=== PATIENT | male | born 1950 | race Caucasian/White ===

== ENCOUNTER 2020-03-20 12:51 | Emergency (ER) | payer MEDICARE, OTHER, SELFPAY ==
[2020-03-20 13:00] VITALS: BP 152/76; PULSE 119; RESP 16; TEMP 36.4; O2SAT 97; BMI 25.9
--- NOTE | 2020-03-20 13:33 | ED_ITS ---
HPI - Male Genitourinary <DORIAN Smith - Last Filed: 03/20/20 15:46> General Chief complaint: Urogenital-Male Stated complaint: bladder spasms Time Seen by Provider: 03/20/20 12:59 Source: patient Mode of arrival: Ambulatory Limitations: no limitations History of Present Illness HPI Narrative: The patient is a 69-year-old male nonsmoker with history of hip replacements an elevated PSA who presents for a chief complaint of inability to urinate. He states he started having trouble last night. He is scheduled to follow-up with a urologist early April given his elevated PSA, so he called their office and they referred him to the emergency department for a Taylor catheter. He states he is urinating very small amounts and that his bladder is hurting and feels like it is stretching. He denies any femurs, abnormal flank pain nausea vomiting or diarrhea. He states he is very concerned about his elevated PSA as he is concerned about prostate cancer. He states his urine is cloudy when he can make a few drops, but denies any dysuria. Related Data Allergies Allergy/AdvReac Type Severity Reaction Status Date / Time No Known Drug Allergies Allergy Verified 03/20/20 13:05 Review of Systems <DORIAN Smith - Last Filed: 03/20/20 15:46> Review of Systems Narrative: GENERAL: Denies chills, fatigue, malaise, fever, sweats. HEENT: Denies sinus pain, ear pain, sore throat, difficulty swallowing, dizziness. RESPIRATORY: Denies dyspnea, cough, wheezing, hemoptysis, sputum. CARDIOVASCULAR: Denies chest pain, palpitations, orthopnea, edema, GASTROINTESTINAL: Denies nausea, vomiting, abdominal pain, diarrhea, constipation, melena. : See HPI MUSCULOSKELETAL: denies weakness, joint pain, or bony pain SKIN: Denies rash, skin lesions, or other NEUROLOGIC: Denies weakness, headache, numbness, change in speech, confusion, seizures, incoordination. PSYCHIATRIC: No concerning psychosocial issues. 12 point review of systems is negative except for those stated above Patient History <DORIAN Smith - Last Filed: 03/20/20 15:46> Medical History (Updated 03/20/20 @ 14:24 by DORIAN Smith) Elevated PSA Surgical History (Updated 03/20/20 @ 13:34 by DORIAN Smith) H/O bilateral hip replacements Social History Smoking Status: Unknown if ever smoked Smoking Status: Unknown if ever smoked alcohol intake frequency: holidays/special occasions only Substance Use Type: does not use Exam <DORIAN Smith - Last Filed: 03/20/20 15:46> Narrative Exam Narrative: GENERAL: This is a well-nourished, well-developed patient, in mild distress. HEAD: Atraumatic. Normocephalic. No temporal or scalp tenderness. EYES: Pupils equal round and reactive. Extraocular motions intact. No scleral icterus. No injection or drainage. ENT: Nose without bleeding, purulent drainage or septal hematoma. Wearing a mask. Airway patent. NECK: Trachea midline. No JVD or lymphadenopathy. Supple, nontender, no meningeal signs. CARDIOVASCULAR: Regular rate and rhythm RESPIRATORY: Clear to auscultation. Breath sounds equal bilaterally. No wheezes, rales, or rhonchi. No cough. No increased respiratory effort. No accessory muscle use. GASTROINTESTINAL: Abdomen soft, diffuse suprapubic tenderness to palpation, nondistended. No hepato-splenomegaly, or palpable masses. Active bowel sounds all 4 quadrants EXTREMITIES: No clubbing, cyanosis, or edema. No joint tenderness, effusion, or edema noted. BACK: Nontender without deformity or crepitance. No flank tenderness. NEURO: AOx3. Stable gait. Interactive. SKIN: No rash or erythema on visible skin Initial Vital Signs Initial Vital Signs: Vital Signs Temperature 97.6 F 03/20/20 13:00 Pulse Rate 119 H 03/20/20 13:00 Respiratory Rate 16 03/20/20 13:00 Blood Pressure 152/76 H 03/20/20 13:00 Pulse Oximetry 97 03/20/20 13:00 <Alejandra Bhatt DO - Last Filed: 03/21/20 07:37> Initial Vital Signs Initial Vital Signs: Vital Signs Temperature 97.6 F 03/20/20 13:00 Pulse Rate 119 H 03/20/20 13:00 Respiratory Rate 16 03/20/20 13:00 Blood Pressure 152/76 H 03/20/20 13:00 Pulse Oximetry 97 03/20/20 13:00 Scores <TANMAY SmithP- - Last Filed: 03/20/20 15:46> GCS [place] coma scale eye opening: Spontaneous [place] coma scale verbal response: Orientated Roxanne coma scale motor response: Obey commands Roxanne coma scale total score: 15 Course <Shavonne CardonaTANMAYP- - Last Filed: 03/20/20 15:46> Orders Ordered: Discontinued Medications Lidocaine HCl (Lidocaine 2% (Urojet) 5 Ml Gel) 5 ml TOP NOW ONE Stop: 03/20/20 13:29 Vital Signs Vital signs: Vital Signs - 8 hr 03/20/20 13:00 03/20/20 14:33 Temperature 97.6 F Pulse Rate 119 H 90 Respiratory Rate 16 16 Blood Pressure 152/76 H 117/78 Pulse Oximetry 97 98 <Alejandra Bhatt DO - Last Filed: 03/21/20 07:37> Orders Ordered: Discontinued Medications Lidocaine HCl (Lidocaine 2% (Urojet) 5 Ml Gel) 5 ml TOP NOW ONE Stop: 03/20/20 13:29 Vital Signs Vital signs: Vital Signs - 8 hr 03/20/20 13:00 03/20/20 14:33 Temperature 97.6 F Pulse Rate 119 H 90 Respiratory Rate 16 16 Blood Pressure 152/76 H 117/78 Pulse Oximetry 97 98 MDM - Male Genitourinary <[facility] - Last Filed: 03/20/20 15:46> Lab Data Labs: Lab Results 03/20/20 Range/Units 13:45 Urine Color Yellow Urine Appearance Clear Urine pH 6.0 (4.5-8.0) Ur Specific [place] 1.020 (1.000-1.035) Urine Protein Negative (Negative) Urine Glucose (UA) Negative (Negative) g/dL Urine Ketones Negative (NEGATIVE) Urine Occult Blood 2+ H (Negative) Urine Nitrate Negative (Negative) Urine Bilirubin Negative (NEGATIVE) Urine Urobilinogen 0.2 (0.2) E.U./dL Ur Leukocyte Esterase Negative (NEGATIVE) Urine RBC 5-10/hpf H (0-5/HPF) Urine WBC None seen (0-5/HPF) Urine Bacteria None seen (None) Ur Culture Indicated? Cult not indicated Urine Dip Bedside Urine Glucose Negative Bedside Urine Bilirubin - Negative Bedside Urine Ketone - Negative Urine Specific [place] 1.025 Bedside Urine Occult Blood ++ Bedside Urine pH 6.0 Bedside Urine Protein - Negative Bedside Urine Urobilinogen - Negative Bedside Urine Nitrite - Negative Bedside Urine Leukocytes - Negative Esterase MDM Narrative Medical decision making narrative: The patient is a 69-year-old male presents with a chief complaint of bladder pain. He states he has had trouble urinating since last night. His bladder scan was over 700 cc, so Taylor catheter was inserted. He felt much improved and felt complete resolution of his symptoms. Urine has no signs of infection. Discussed at length the importance of follow- up with Urology as he has scheduled already. Discussed keeping catheter clean. Discussed come back to ER for acute concerns. Patient have no questions or concerns upon discharge and state understanding return precautions as well as f ollow-up care. <Alejandra Bhatt DO - Last Filed: 03/21/20 07:37> Lab Data Labs: Lab Results 03/20/20 Range/Units 13:45 Urine Color Yellow Urine Appearance Clear Urine pH 6.0 (4.5-8.0) Ur Specific [place] 1.020 (1.000-1.035) Urine Protein Negative (Negative) Urine Glucose (UA) Negative (Negative) g/dL Urine Ketones Negative (NEGATIVE) Urine Occult Blood 2+ H (Negative) Urine Nitrate Negative (Negative) Urine Bilirubin Negative (NEGATIVE) Urine Urobilinogen 0.2 (0.2) E.U./dL Ur Leukocyte Esterase Negative (NEGATIVE) Urine RBC 5-10/hpf H (0-5/HPF) Urine WBC None seen (0-5/HPF) Urine Bacteria None seen (None) Ur Culture Indicated? Cult not indicated Urine Dip Bedside Urine Glucose Negative Bedside Urine Bilirubin - Negative Bedside Urine Ketone - Negative Urine Specific [place] 1.025 Bedside Urine Occult Blood ++ Bedside Urine pH 6.0 Bedside Urine Protein - Negative Bedside Urine Urobilinogen - Negative Bedside Urine Nitrite - Negative Bedside Urine Leukocytes - Negative Esterase Discharge Plan Departure Patient Disposition: Home Clinical Impression: Acute retention of urine Instructions: How to Care for Your Taylor Catheter -- Male, DI for Urinary Retention in Men Activity Restrictions/Additional Instructions: Thank you for trusting us with your care today. We have placed a Taylor catheter to help your bladder drain. I have given you discharge instructions regarding how to take care of a Taylor catheter, please pay attention to these especially the aspects regarding keeping it clean. Please follow-up with your urologist as scheduled. I have given you contact information to the [facility] human resources assistant, who can help you identify primary care provider in the area. As discussed, please come back to the emergency department for any acute concerns. Referrals: [facility] [Outside] <Alejandra Bhatt, - Last Filed: 03/21/20 07:37> Mark ED Attending David Attestation: I was immediately available in the department for consultation. Documentation has been reviewed. I agree with assessment and plan.
[2020-03-20 13:47] LABS: Bacteria Urine None Seen; WBC Urine None Seen (0-5/HPF)
[2020-03-20 13:48] LABS: Appearance Urine UA CLEAR; Bilirubin Urine UA NEGATIVE (NEGATIVE); Color Urine UA YELLOW; Glucose Urine UA NEGATIVE (Negative); Ketones Urine UA NEGATIVE (NEGATIVE); Leukocyte Esterase Urine UA NEGATIVE (NEGATIVE); Nitrite Urine UA NEGATIVE (Negative); Occult Blood Urine UA 2+ (Negative); Protein Urine UA NEGATIVE (Negative); Urobilinogen Urine UA 0.2 E.U./dL (0.2)
[2020-03-20 13:53] LABS: Culture Indicated Urine Cult Not Indicated; RBC Urine 5-10/HPF (0-5/HPF)
[2020-03-20 14:33] VITALS: BP 117/78; PULSE 90; RESP 16; O2SAT 98
== END 2020-03-20 14:33 | disposition home or self-care (01) ==
PROVIDERS: Emergency Provider Nurse Practitioner Family
DX: R33.8 Other retention of urine (principal); R97.20 Elevated prostate specific antigen [PSA]
CPT/HCPCS: 51798; 81001; 81003; 99281; 99283

== ENCOUNTER → 2021-05-26 16:10 | Outpatient (CLI) | payer MEDICARE, OTHER, SELFPAY ==
--- NOTE | 2021-05-26 16:13 | DI.RAD.S_ITS ---
PROCEDURE: XR KNEE LT 3V INDICATIONS: swollen, painful knee TECHNIQUE: 3 views of the knee were acquired. COMPARISON: None. FINDINGS: Bones: No fractures or dislocations. No suspicious bony lesions. Soft tissues: No joint effusion. No suspicious soft tissue calcifications. IMPRESSION: No acute fracture. No osseous lesion. If symptoms and/or clinical suspicion for pathology persist, further assessment with repeat, or advanced imaging (e.g., CT, MRI, or bone scan) may be helpful for further assessment. Dictated by: Waqar Elaine M.D. on 05/26/2021 at 16:39 Approved by: Waqar Elaine M.D. on 05/26/2021 at 16:39
== END ==
PROVIDERS: Referring Provider Physician Assistant; Visit Provider Physician Assistant
DX: M25.562 Pain in left knee (principal)
CPT/HCPCS: 73562

== ENCOUNTER → 2021-09-04 12:39 | Outpatient (CLI) | payer MEDICARE, OTHER, SELFPAY ==
--- NOTE | 2021-09-04 | DI.CT.S_ITS ---
PROCEDURE: CT LE RT WO CON INDICATIONS: Presence of right artificial hip joint TECHNIQUE: Noncontrast 3 mm axial sections acquired through the bony pelvis. Additional 3 mm axial sections acquired through the symptomatic hip joint, with coronal and sagittal reformats. COMPARISON: None. FINDINGS: Image quality: Excellent. Bones: Bilateral arthroplasty has been performed. The hip arthroplasty components are in expected location with no evidence of loosening bilaterally no fracture nor osseous lesion.. Soft tissues: Visualized bowel loops and vasculature are normal in caliber. Visualized bowel loops are normal in caliber. Diverticulosis of the sigmoid colon is present. No adenopathy. Appendix is normal. IMPRESSION: Expected appearance of bilateral hip arthroplasties. Dictated by: Waqar Elaine M.D. on 09/04/2021 at 15:29 Approved by: Waqar Elaine M.D. on 09/04/2021 at 15:35
== END ==
PROVIDERS: Referring Provider Orthopaedic Surgery Adult Reconstructive Orthopaedic Surgery; Visit Provider Orthopaedic Surgery Adult Reconstructive Orthopaedic Surgery
DX: Z09 Encounter for follow-up examination after completed treatment for conditions other than malignant neoplasm; Z96.643 Presence of artificial hip joint, bilateral
CPT/HCPCS: 73700

== ENCOUNTER → 2022-12-24 14:12 | Outpatient (CLI) | payer MEDICARE, OTHER, SELFPAY ==
[2022-12-24 14:59] LABS: Add Manual Diff / Slide Review NO; Basophils Absolute Auto 0 /uL (0-100); Basophils Percent Auto 0.8 % (0-2); Eosinophils Absolute Auto 200 /uL (0-450); Eosinophils Percent Auto 5.1 % (2-4); Hematocrit 40.7 % (41-53); Hemoglobin 13.9 g/dL (13.5-17.5); Lymphocytes Absolute Auto 1200 /uL (1100-4500); Lymphocytes Percent Auto 25.3 % (25-40); Mean Corpuscular HGB Conc 34.2 % (30-36); Mean Corpuscular Hemoglobin 30.2 PG (26-34); Mean Corpuscular Volume 88.2 fL (80-100); Monocytes Absolute Auto 500 /uL (0-900); Monocytes Percent Auto 9.9 % (3-14); Neutrophils Absolute Auto 2800 /uL (1500-7000); Neutrophils Percent Auto 58.9 % (50-75); Platelet Count 225 X10^3/uL (150-400); Red Blood Cell Count 4.61 X10^6/uL (4.5-5.9); Red Cell Distribution Width 13.6 % (11.6-14.8); White Blood Cell Count 4.7 X10^3/uL (4.5-11.0)
[2022-12-24 15:29] LABS: Prothrombin Time 11.9 SECONDS (10.1-12.7)
[2022-12-24 15:32] LABS: PTT Partial Thromboplastin Tim 32 SECONDS (26-36)
[2022-12-24 15:35] LABS: BUN Creatinine Ratio 23.8 (6-22); Blood Urea Nitrogen 15 mg/dL (9-20); Carbon Dioxide 24 mmol/L (22-32); Chloride 104 mmol/L (98-107); Estimated Glomerular Filt Rate > 60 mL/min (>60); Glucose 100 mg/dL (80-110); HEMOLYSIS < 15 (0-50); Potassium 3.9 mmol/L (3.4-5.1); Sodium 135 mmol/L (137-145)
== END ==
PROVIDERS: Referring Provider Physical Medicine & Rehabilitation; Visit Provider Physical Medicine & Rehabilitation
DX: Z01.818 Encounter for other preprocedural examination (principal); Z51.81 Encounter for therapeutic drug level monitoring; Z01.812 Encounter for preprocedural laboratory examination
CPT/HCPCS: 36415; 80048; 85025; 85610; 85730; 93005

== ENCOUNTER 2023-02-23 09:05 | Day surgery (SDC) | payer MEDICARE, OTHER, SELFPAY ==
--- NOTE | 2023-02-23 | PATH_ITS ---
[facility] Accession Number: [id number] No. of containers..01 Tissue . 01 Material submitted: . colon - SIGMOID POLYP X2 . 01 Diagnosis: Sigmoid Colon, Polyp x2: Tubular adenoma. Hyperplastic polyp. MRV 03/02/2023 1701 Local . 01 Electronically signed: . Isabel Oliveira MD, Pathologist NPI- [id number] . 01 Gross description: . SIGMOID POLYP X2: Received in formalin is 2 fragment(s) of dean, soft tissue measuring 0.5 x 0.3 x 0.3 cm to 0.4 x 0.3 x 0.2 cm submitted entirely in 1 cassette(s) /AAY 02/24/2023 0324 Local . 01 Pathologist provided ICD-10: D12.5 . 01 CPT . 360376 Specimen Comment: A courtesy copy of this report has been sent to [phone] Performed at: 01 [facility] [address] [place] [address] [address] [facility], [place], [place] [id number] MD Alec Joshi MD Phone: [phone]
[2023-02-23] MEDS: LACTATED RINGERS 1,000 ML 42 ML IV (09:15)
[2023-02-23 09:23] VITALS: BP 135/89; PULSE 96; RESP 97; TEMP 36.1; BMI 29.5
--- NOTE | 2023-02-23 09:45 | PM.HP.1 ---
History of Present Illness History of Present Illness Date Patient Seen: 02/23/23 Time Patient Seen: 09:45 Chief complaint: Colonoscopy Narrative: 72-year-old man personal history of colonic polyps here for screening colonoscopy. Last colonoscopy 8 years ago normal. No family history of intestinal malignancy. No abdominal concerns today including abdominal pain, unintentional weight loss blood per rectum. PFSH Medical History Elevated PSA Surgical History H/O bilateral hip replacements Social History household members: spouse Smoking Status: Former smoker alcohol intake: current Meds Home Medications and Allergies Home Medications Medication Instructions Recorded Confirmed Type atorvastatin 40 mg tablet 40 mg PO DAILY 02/23/23 02/23/23 History finasteride 5 mg tablet 5 mg PO DAILY 02/23/23 02/23/23 History omeprazole 20 mg capsule,delayed 20 mg PO DAILY 02/23/23 02/23/23 History release tamsulosin 0.4 mg capsule 0.8 mg PO DAILY 02/23/23 02/23/23 History Allergies Allergy/AdvReac Type Severity Reaction Status Date / Time iodine AdvReac Unknown Verified 02/23/23 09:20 Exam Vital Signs (past 8 hours): - 02/23/23 09:23 Temperature 97 F L Pulse Rate 96 H Respiratory Rate 97 H Blood Pressure 135/89 Oxygen Delivery Method Room Air Oxygen Delivery Method Room Air Narrative Exam Narrative: General adult man alert oriented no acute distress Chest nonlabored respiration Extremities warm well perfused Assessment & Plan Assessment & Plan narrative: The patient requires colorectal screening and colonoscopy is recommended. Technical details were discussed. Risks, benefits, alternatives explained. Risks including but not limited to myocardial infarction, aspiration, bleeding, pain, missed lesion, incomplete examination, need for further radiographic studies, colonic perforation, and need for major abdominal surgery were discussed. All questions were answered to their satisfaction, and they are in agreement with this plan.
--- NOTE | 2023-02-23 09:48 | P.OP.COLON_ITS ---
Operative Date/Time/Diagnoses Date of procedure: 02/23/23 Time of procedure: 09:48 Pre-op diagnosis: Personal history of colonic polyps Procedure & Clinicians Study performed: Colonoscopy Same procedure as scheduled: Yes Indications: Personal history of colonic polyps. Colorectal screening. Surgeon: Lopez Spicer Procedure Notes Procedure in detail: The history and physical was performed/updated and the patient is ASA class is 2. The procedure was discussed in detail with the patient. Potential risks complications including infection, bleeding, missed diagnosis, perforation, need for surgery, and were explained. Their questions were answered and infor med consent was obtained. Patient was brought to the procedure room and placed standard monitoring equipment. The patient's vital signs were monitored continuously throughout the entire procedure. Prior to starting time-out was performed. The patient was placed in the left lateral recumbent position. Procedural sedation was administered by anesthesia. Examination began with a thorough inspection of the perianal area there was no evidence of fissures, fistulae, external hemorrhoids or cutaneous malignancy. The colonoscopy scope was then placed into the anal canal and was advanced to the cecum, which was identified by the ileocecal valve, the appendiceal orifice and the confluence of the taenia. The scope was then slowly withdrawn examining colon thoroughly in all directions, irrigating it of any residual stool. The scope was retroflexed within the rectum The patient tolerated the procedure well. They will be discharged once criteria are met. The prep was of fair quality. The withdrawl time was 10 minutes. FINDINGS * Sigmoid. Two polyps ranging in size between 3-5 mm removed with snare and biopsy forceps in their entirety. Moderate diverticulosis Specimen(s): other (Sigmoid colon polyps x2) Impression: Colonic polyps x2 Post-procedure Plan for aftercare: Follow-up is dependent on pathology findings likely 5 years Disposition: same day surgery
[2023-02-23 10:11] VITALS: BP 96/60; PULSE 77; RESP 13; TEMP 36.7; O2SAT 93
[2023-02-23 10:16] VITALS: BP 100/68; PULSE 77; RESP 17; O2SAT 94
[2023-02-23 10:21] VITALS: BP 100/62; PULSE 85; RESP 22; O2SAT 94
[2023-02-23 10:26] VITALS: BP 111/64; PULSE 83; RESP 12; TEMP 36.7; O2SAT 94
== END 2023-02-23 10:45 | disposition home or self-care (01) ==
PROVIDERS: Referring Provider Surgery; Visit Provider Surgery
PROC: 0DJD8ZZ Inspection of Lower Intestinal Tract, Via Natural or Artificial Opening Endoscopic (ICD-10-PCS; CPT 45378; principal; 2023-02-23 10:00)
DX: Z12.11 Encounter for screening for malignant neoplasm of colon (principal); Z86.010 Personal history of colon polyps; K57.30 Diverticulosis of large intestine without perforation or abscess without bleeding; D12.5 Benign neoplasm of sigmoid colon
CPT/HCPCS: 45385; 45380

== ENCOUNTER → 2023-07-08 10:48 | Outpatient (CLI) | payer MEDICARE, OTHER, SELFPAY ==
--- NOTE | 2023-07-08 10:50 | DI.US.S_ITS ---
PROCEDURE: US ABDOMEN LIMITED INDICATIONS: RIGHT GROIN/HIP PAIN; POSSIBLE HERNIA TECHNIQUE: Real-time focused scanning was performed of the abdomen, with image documentation. COMPARISON: None. Findings and impression: In the area of interest in the right groin, no discrete fluid collection or hernia is identified. Dictated by: Jason Ochoa M.D. on 07/08/2023 at 12:19 Approved by: Jason Ochoa M.D. on 07/08/2023 at 12:19
[2023-07-08 11:45] LABS: Add Manual Diff / Slide Review NO; Basophils Absolute Auto 0 /uL (0-100); Eosinophils Absolute Auto 200 /uL (0-450); Eosinophils Percent Auto 7.2 % (2-4); Hemoglobin 13.9 g/dL (13.5-17.5); Lymphocytes Absolute Auto 1100 /uL (1100-4500); Lymphocytes Percent Auto 32.4 % (25-40); Mean Corpuscular Hemoglobin 30.5 PG (26-34); Mean Corpuscular Volume 89.6 fL (80-100); Monocytes Absolute Auto 400 /uL (0-900); Monocytes Percent Auto 11.7 % (3-14); Neutrophils Absolute Auto 1600 /uL (1500-7000); Neutrophils Percent Auto 47.7 % (50-75); Platelet Count 236 X10^3/uL (150-400); Red Blood Cell Count 4.57 X10^6/uL (4.5-5.9); Red Cell Distribution Width 13.6 % (11.6-14.8); White Blood Cell Count 3.4 X10^3/uL (4.5-11.0)
[2023-07-08 12:05] LABS: Hemoglobin A1C% w Est Avg Glu 5.7 % (4.0-6.0)
[2023-07-08 12:12] LABS: Alanine Aminotransferase 27 IU/L (<50); Albumin 4.3 g/dL (3.5-5.0); Albumin Globulin Ratio 1.6 (1.0-2.8); Alkaline Phosphatase 75 U/L (38-126); Aspartate Aminotransferase 34 IU/L (17-59); BUN Creatinine Ratio 26.2 (6-22); Bilirubin Total 0.7 mg/dL (0.2-1.3); Blood Urea Nitrogen 16 mg/dL (9-20); Calcium 8.9 mg/dL (8.4-10.2); Carbon Dioxide 24 mmol/L (22-32); Chloride 107 mmol/L (98-107); Cholesterol 124 mg/dL (140-199); Estimated Glomerular Filt Rate > 60 mL/min (>60); Globulin 2.7 g/dL (1.7-4.1); Glucose 114 mg/dL (80-110); HDL Cholesterol 57 mg/dL (40-60); HEMOLYSIS < 15 (0-50); LDL Cholesterol Calculated 56 mg/dL (<100); Potassium 3.9 mmol/L (3.4-5.1); Sodium 138 mmol/L (137-145); Triglycerides 56 mg/dL (35-150)
[2023-07-08 12:17] LABS: High Sensitivity CRP - Cardiac 0.4 mg/L (1.0-3.0)
[2023-07-08 12:41] LABS: Prostate Specific Antigen Scrn 1.84 ng/mL (0.1-4.0)
== END ==
PROVIDERS: PCP Family Medicine; Referring Provider Family Medicine; Visit Provider Family Medicine
DX: K21.9 Gastro-esophageal reflux disease without esophagitis (principal); R10.31 Right lower quadrant pain; N40.0 Benign prostatic hyperplasia without lower urinary tract symptoms; E78.5 Hyperlipidemia, unspecified; Z12.5 Encounter for screening for malignant neoplasm of prostate; I25.10 Atherosclerotic heart disease of native coronary artery without angina pectoris; M19.90 Unspecified osteoarthritis, unspecified site; M54.9 Dorsalgia, unspecified; G89.29 Other chronic pain
CPT/HCPCS: 36415; 76705; 80053; 80061; 83036; 85025; 86140; G0103

== ENCOUNTER → 2024-07-14 11:57 | Outpatient (CLI) | payer MEDICARE, OTHER, SELFPAY ==
[2024-07-14 13:34] LABS: Alanine Aminotransferase 29 IU/L (<50); Albumin 4.6 g/dL (3.5-5.0); Albumin Globulin Ratio 1.9 (1.0-2.8); Alkaline Phosphatase 81 U/L (38-126); Aspartate Aminotransferase 35 IU/L (17-59); Blood Urea Nitrogen 17 mg/dL (9-20); Calcium 9.4 mg/dL (8.4-10.2); Carbon Dioxide 22 mmol/L (22-32); Chloride 105 mmol/L (98-107); Cholesterol 154 mg/dL (140-199); Estimated Glomerular Filt Rate > 60 mL/min (>60); Globulin 2.4 g/dL (1.7-4.1); Glucose 118 mg/dL (80-110); HDL Cholesterol 76 mg/dL (40-60); HEMOLYSIS < 15 (0-50); LDL Cholesterol Calculated 62 mg/dL (<100); Potassium 4.2 mmol/L (3.4-5.1); Sodium 136 mmol/L (137-145); Triglycerides 80 mg/dL (35-150)
[2024-07-14 14:05] LABS: Prostate Specific Antigen Scrn 1.47 ng/mL (0.1-4.0)
[2024-07-15 03:40] LABS: CRP, High Sensitivity 0.44 mg/L (0.00-3.00)
== END ==
PROVIDERS: PCP Family Medicine; Referring Provider Family Medicine; Visit Provider Family Medicine
DX: Z00.00 Encounter for general adult medical examination without abnormal findings (principal); E78.5 Hyperlipidemia, unspecified; Z12.5 Encounter for screening for malignant neoplasm of prostate; R39.198 Other difficulties with micturition; Z87.898 Personal history of other specified conditions; I25.10 Atherosclerotic heart disease of native coronary artery without angina pectoris
CPT/HCPCS: 36415; 80053; 80061; 86140; G0103

== ENCOUNTER → 2024-11-16 10:42 | Outpatient (CLI) | payer MEDICARE, OTHER, SELFPAY | PROVIDERS: PCP Family Medicine; Visit Provider Urology | DX: R39.198 Other difficulties with micturition (principal); R39.14 Feeling of incomplete bladder emptying | CPT/HCPCS: 87086 ==

== ENCOUNTER 2024-11-28 06:01 | Day surgery (SDC) | payer MEDICARE, OTHER, SELFPAY ==
[2024-11-22 14:03] VITALS: BMI 29.6
--- NOTE | 2024-11-28 | PATH_ITS ---
[facility] Accession Number: [id number] No. of containers..01 Tissue . 01 Material submitted: . prostate - PROSTATE CHIPS . 01 Diagnosis: PROSTATE CHIPS (WEIGHT 21 GRAMS): Benign prostatic tissue with features of glandular and stromal hyperplasia. [facility] 12/08/2024 1143 Local . 01 Electronically signed: . Beverly Salazar MD, Pathologist NPI- [id number] . 01 Gross description: . Received in formalin with two identifiers and prostate chips, are multiple dean rubbery soft tissue fragments admixed with a moderate amount of hemorrhagic material weighing 21 grams and aggregating to 9.5 x 7.5 x 2.3 cm. The specimen is submitted entirely in A1-A16. ([id number]) /MRV 12/06/2024 1903 Local . 01 Pathologist provided ICD-10: N40.1 . 01 CPT . 837402 Specimen Comment: A courtesy copy of this report has been sent to [facility] Performed at: [address] [facility] [address], [place], [place] [id number] MD Alec Joshi MD Phone: [phone]
[2024-11-28] MEDS: LACTATED RINGERS 1,000 ML 21 ML IV ×2 (06:36→08:50)
[2024-11-28 06:51] VITALS: BP 106/69; PULSE 87; RESP 16; TEMP 36.9; O2SAT 97; BMI 29.6
--- NOTE | 2024-11-28 07:36 | PM.PREOP ---
Pre-operative Note COVID-19 COVID-19 status: Not tested Interval Note History & Physical reviewed/Exam performed by Physician: Yes Changes to H&P: No
--- NOTE | 2024-11-28 07:39 | SUR.OPER ---
Lithotomy on padded OR bed, head on pillow, arms secured on padded arm boards at <90 degrees abduction. Legs secured in padded yellow fins stirrups.
[2024-11-28] MEDS: levoFLOXacin 500 MG/100 ML PIGGYBACK 100 MG IV (07:55)
[2024-11-28 10:06] VITALS: BP 90/54; PULSE 81; RESP 12; TEMP 36.3; O2SAT 93
[2024-11-28 10:11] VITALS: BP 91/55; PULSE 81; RESP 10; O2SAT 94
--- NOTE | 2024-11-28 10:14 | P.OP_ITS ---
Operative Date/Time/Diagnoses Date of procedure: 11/28/24 Time of procedure: 08:00 Pre-op diagnosis: Benign prostatic hyperplasia with lower urinary tract symptoms Post-op diagnosis: same Procedure & Clinicians Procedure: Cystoscopy Aquablation Same procedure(s) as scheduled: Yes Indications: 73 y/o M noted to have symptoms consistent w/ BPH and LUTS that are currently managed w/ Tamsulosin 0.8mg and Finasteride 5mg daily. Discussed treatment options to include observation vs a lower urinary tract evaluation prior to a bladder outlet procedure (this was already completed by Dr. Lepe). Discussed that he otherwise should be a candidate for Aquablation. Discussed risks of the procedure to include but not limited to pain, bleeding, infection, injury to urethra/bladder/either ureteral orifice, clot retention, irritative voiding symptoms for several months following the procedure, urinary incontinence, erectile dysfunction, retrograde ejaculation, need for open emergent repair of any bladder or ureteral injuries, urethral stricture or bladder neck contracture development, need for repeat procedures. Surgeon: Kevin Chaudhari Click Yes if Unassisted: Yes Anesthesia Type: General Operative Notes Findings: Coaptating lateral prostatic lobes, large intravesical median lobe Closure Type: primary Specimen(s): none sent Applied: catheter Estimated Blood Loss (mL): 50 Blood products transfused: none Procedure in detail: After informed consent was obtained, the patient was identified brought to the operating room where he was placed in his supine position on the table.? Once there anesthesia was induced and maintained.? Ensuring an adequate level of anesthesia the patient was transitioned to the lithotomy position where after time-out he was prepped.? After prepping, ensuring an adequate level of anesthesia, administration IV antibiotics and time-out 60 cc of ultrasound gel was instilled within the rectum and the ultrasound probe which had been attached to the TRUS stepper which was attached to the TRUS stepper articulating arm which was secured to the bed was advanced into the rectum under direct vision via the ultrasound.? The ultrasound probe was then aligned and confirmation made that the prostate was centered and aligned in both the sagittal and transverse views.? The bladder neck, verumontanum, central and transitional zones were identified.? With the ultrasound in place and adjusted the patient was then draped in a sterile fashion. With the patient draped the 24 [place] aqua beam handpiece was then inserted through the urethra and advanced into the bladder.? Cystoscopy was then performed and no concerning bladder mass or lesions were noted.? Bilateral ureteral orifices were noted to be orthotopic in nature.? As the cystoscope was advanced the level of the sphincter, verumontanum, bladder neck were all identified via ultrasound and under direct vision.? The aqua beam hand place was then secured to the handpiece articulating arm which had been secured to the bed.? The Aquablation handpiece and TRUS probe were confirmed to be parallel and colinear.? Confirmation was then made that the aqua beam handpiece and nozzle was centered and anterior to the bladder neck.? The cystoscope was then retracted under direct vision in the sphincter and verumontanum were identified.? The tip of the cystoscope was then placed proximal to the external sphincter.? Compression was applied with the TRUS probe to the prostate.? The alignment of the TRUS probe and aqua beam handpiece was once again confirmed.? Horizontal alignment of the handpiece water jet was then performed.? With these adjustments made, the treatment zones were then planned using real-time ultrasound.? In the largest transverse view of the prostate the depth and radial angles were determined and set again in the transverse view of the prostate.? In the longitudinal and sagittal view the Aquablation nozzle was identified and its position registered with the software and robot.? The treatment contours were then determined and adjusted to reflect the intended margins of resection.? Following our plan confirmation, the Aquablation resection treatment was started.? A 2nd pass was then completed in similar fashion after the 1st pass had been completed.? At this point, the Aqua hand piece was removed from the urethra. The 26Fr resectoscope was then inserted into the urethra and cystoscopy was repeated.? The Elik roving machine operator was utilized to evacuate the blood clots from the bladder.? The bladder neck was then resected using the bipolar Gyrus loop.? Bilateral ureteral orifices were again identified and noted to be intact at case end.? Hemostasis was obtained and noted to be excellent at case end.? The resectoscope was then removed and a 24Fr Yomi 3-way hematuria catheter was inserted through the urethra and into the bladder.? 45cc of sterile water was utilized for balloon insufflation.? Efflux was noted to be clear at case end.? Anesthesia was reversed, he was extubated in the OR and transferred to the PACU in stable condition for recovery. Complications: none Post-operative Condition: stable Disposition: PACU Plan for aftercare: Will continue to run CBI for a few hours to evaluate the efflux from his catheter.? Should it remain relatively clear and with minimal blood clots, will discharge home with catheter in place and have him return to Urology clinic in 2 days for a voiding trial.? Should his efflux remain red or have significant clot burden, will admit overnight for observation and continued CBI.
[2024-11-28] MEDS: OXYCODONE IR 5 MG TABLET PO ×2 (10:25→12:27)
[2024-11-28 10:26] VITALS: PULSE 79; RESP 18; O2SAT 93
[2024-11-28] MEDS: ACETAMINOPHEN IV 1,000 MG/100 ML VIAL 400 MG IV (10:34)
[2024-11-28] MEDS: PHENAZOPYRIDINE 100 MG TABLET 200 MG PO (10:38)
[2024-11-28] MEDS: ONDANSETRON 4 MG/2 ML INJ IV (12:27)
[2024-11-28 13:16] VITALS: BP 111/79; PULSE 64; RESP 16; TEMP 36.7; O2SAT 97
== END 2024-11-28 14:09 | disposition home or self-care (01) ==
PROVIDERS: PCP Family Medicine; Referring Provider Urology; Visit Provider Urology
PROC: 0VT08ZZ Resection of Prostate, Via Natural or Artificial Opening Endoscopic (ICD-10-PCS; CPT 0421T; principal; 2024-11-28 07:45)
DX: N40.1 Benign prostatic hyperplasia with lower urinary tract symptoms (principal); R39.12 Poor urinary stream; R35.0 Frequency of micturition; R39.15 Urgency of urination; R35.1 Nocturia; Z79.82 Long term (current) use of aspirin; Z87.891 Personal history of nicotine dependence
CPT/HCPCS: 0421T; C2596; J0131; J1100; J1171; J1956; J2405; J2704; J3010; J3490

== ENCOUNTER → 2024-11-30 14:29 | Outpatient (CLI) | payer MEDICARE, OTHER, SELFPAY | PROVIDERS: PCP Family Medicine; Visit Provider Urology | DX: R39.198 Other difficulties with micturition (principal); R39.14 Feeling of incomplete bladder emptying; N40.1 Benign prostatic hyperplasia with lower urinary tract symptoms; N13.8 Other obstructive and reflux uropathy; Z12.5 Encounter for screening for malignant neoplasm of prostate | CPT/HCPCS: 81002; 87086; 99213 ==

== ENCOUNTER → 2025-01-11 14:18 | Outpatient (CLI) | payer MEDICARE, OTHER, SELFPAY | PROVIDERS: PCP Family Medicine; Visit Provider Urology | DX: R39.9 Unspecified symptoms and signs involving the genitourinary system (principal) | CPT/HCPCS: 87086 ==

== ENCOUNTER → 2025-04-19 13:58 | Outpatient (CLI) | payer MEDICARE, OTHER, SELFPAY | LOC: PHYS 13:59 | PROVIDERS: Family Provider Family Medicine; PCP Family Medicine; Referring Provider Orthopaedic Surgery; Visit Provider Orthopaedic Surgery | DX: R20.2 Paresthesia of skin (principal) | CPT/HCPCS: 95886; 95909 ==